=== PATIENT | male | born 1980 | race Caucasian/White ===

== ENCOUNTER 2016-04-27 04:08 | Emergency (ER) | payer OTHER, BC ==
[~2016-04-27] VITALS: Ht 177.8 cm; Wt 89.8 kg
[2016-04-27 04:21] VITALS: BP 134/76
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
== END 2016-04-27 05:00 | disposition home or self-care (01) ==
LOC: ER 04:08
DX: Z04.1 Encounter for examination and observation following transport accident (principal); N40.0 Benign prostatic hyperplasia without lower urinary tract symptoms
CPT/HCPCS: 99281

== ENCOUNTER 2018-06-29 21:29 | Emergency (ER) | payer OTHER ==
[~2018-06-29] VITALS: Ht 180.3 cm; Wt 83.9 kg
[2018-06-29] MEDS ORDERED: NEOMY/BACITR/POLYMYXIN OINT PACKET. TP ONE (22:30)
[2018-06-29] MEDS ORDERED: HYDROcodone/APAP 5/325MG 1 TAB TABLET PO ONE (22:30)
[2018-06-29 23:00] VITALS: BP 164/84
[2018-06-29] MEDS ORDERED: HYDR-3164 PO (23:04)
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
== END 2018-06-29 23:24 | disposition home or self-care (01) ==
LOC: ER 21:29
DX: T23.251A Burn of second degree of right palm, initial encounter (principal); Z88.0 Allergy status to penicillin; Z88.1 Allergy status to other antibiotic agents; X17.XXXA Contact with hot engines, machinery and tools, initial encounter; Y93.89 Activity, other specified; Y92.69 Other specified industrial and construction area as the place of occurrence of the external cause; Y99.0 Civilian activity done for income or pay
CPT/HCPCS: 16020; 99284-25